=== PATIENT | male | born 1960 | race Caucasian/White ===

== ENCOUNTER 2018-08-29 08:51 | Outpatient (CLI) | payer OTHER, SELFPAY ==
[2018-08-29 10:29] LABS: Cholesterol 188 mg/dL (50-200); HDL Cholesterol 37 mg/dL (40-60); LDL CHOLESTEROL 135 mg/dL (<100); Triglyceride 99 mg/dL (30-150)
== END 2018-08-29 09:11 ==
PROVIDERS: PCP Family Medicine; Visit Provider Family Medicine
DX: E78.5 Hyperlipidemia, unspecified (principal)
CPT/HCPCS: 36415; 80061; 83721

== ENCOUNTER 2018-10-09 07:33 | Outpatient (REF) | payer OTHER, SELFPAY ==
[2018-10-10 11:37] LABS: Campylobacter PCR SEE COMMENTS; Salmonella PCR SEE COMMENTS; Shiga Toxin PCR SEE COMMENTS; Shigella/Enteroinvasive Ecoli SEE COMMENTS
== END 2018-10-09 07:53 ==
LOC: LBN 07:33
PROVIDERS: PCP Family Medicine; Visit Provider Family Medicine
DX: R19.7 Diarrhea, unspecified (principal)
CPT/HCPCS: 87329; 87505; 87177

== ENCOUNTER 2019-09-02 09:54 | Outpatient (REF) | payer OTHER, SELFPAY ==
[2019-09-02 12:55] LABS: Uric Acid 8.2 mg/dL (3.5-7.2)
== END 2019-09-02 10:14 ==
LOC: LBN 09:54
PROVIDERS: PCP Family Medicine; Visit Provider Family Medicine
DX: M10.9 Gout, unspecified (principal)
CPT/HCPCS: 84550

== ENCOUNTER 2020-02-27 02:04 | Outpatient (CLI) | payer OTHER, SELFPAY ==
[2020-02-27 09:43] LABS: Anion Gap 8.1 mmol/L (3-11); BUN 26 mg/dL (7-18); CO2 25.9 mmol/L (21.0-32.0); Chloride 103 mmol/L (98-107); Glucose 110 mg/dL (74-106); Potassium 4.4 mmol/L (3.5-5.1); Sodium 137 mmol/L (136-145)
== END 2020-02-27 02:24 ==
PROVIDERS: PCP Family Medicine; Visit Provider Family Medicine
DX: E11.9 Type 2 diabetes mellitus without complications (principal)
CPT/HCPCS: 36415; 80048

== ENCOUNTER 2020-03-22 11:44 | Outpatient (CLI) | payer OTHER, SELFPAY ==
[2020-03-23 02:51] LABS: COVID-19 RT-PCR UVMMC Result Negative (Negative)
== END 2020-03-22 12:04 ==
PROVIDERS: PCP Family Medicine; Visit Provider Family Medicine
DX: Z20.828 Contact with and (suspected) exposure to other viral communicable diseases (principal)
CPT/HCPCS: U0003

== ENCOUNTER 2023-02-19 06:54 | Day surgery (SDC) | payer OTHER, SELFPAY ==
[2023-02-19 07:00] VITALS: BP 137/86; PULSE 72; RESP 18; TEMP 36.3; O2SAT 97
[2023-02-19] MEDS: Lactated Ringers 1,000 ML 80 ML IV (07:25)
--- NOTE | 2023-02-19 07:34 | W.ANESPOSTOP ---
Postoperative Evaluation Date, Time and Location Date Performed: 02/19/23 Time Performed: 06:55 Patient Location: Day Surgery Unit Vital Signs Most Recent Imported Vital Signs: Most Recent Vital Signs Temp Pulse Resp BP Pulse Ox 36.3 C L 72 18 137/86 97 02/19/23 07:00 02/19/23 07:00 02/19/23 07:00 02/19/23 07:00 02/19/23 07:00 Assessment Mental Status: Awake (Alert & Oriented to Patient Baseline) Airway and Respiratory Function: Patent airway with normal (patient baseline) respiratory exam Cardiovascular Function: Hemodynamically Stable Hydration Status: Adequately Hydrated Nausea & Vomiting: No Nausea or Vomiting Pain: Pt. Denies Any Pain Peripheral Nerve Block: Patient did not receive a nerve block
--- NOTE | 2023-02-19 07:34 | W.ANESPRE ---
General Info Date of Service Date Performed: 02/19/23 Height: 5 ft 7 in Weight: 96.3 kg Body Mass Index (BMI): 33.2 Surgical Procedure: Operation Date: 02/19/23 08:20 Proposed Procedure Side Surgeon p Colonoscopy Bruce Watters MD Meds Allergies and Home Medications Allergies Allergy/AdvReac Type Severity Reaction Status Date / Time gluten Allergy Unknown unknown Verified 02/19/23 07:09 Home Medication Medication Instructions Recorded aspirin 81 mg tablet,delayed 81 mg PO DAILY 100 days #100 tabs 02/26/18 release (Aspir-) blood-glucose meter (OneTouch ##1 02/26/18 Verio IQ Meter) lancets 33 gauge (OneTouch Delica #100 ea 02/26/18 Lancets) indomethacin 50 mg capsule 50 mg PO TID PRN gout attack #30 08/31/20 caps blood sugar diagnostic (OneTouch #100 strips 11/24/21 Verio test strips) escitalopram oxalate 20 mg tablet 20 mg PO DAILY #90 tabs 06/19/22 (Lexapro) allopurinol 100 mg tablet 100 mg PO DAILY #90 tabs 11/02/22 atorvastatin 40 mg tablet 40 mg PO DAILY #90 tabs 11/02/22 metformin 500 mg tablet 1,000 mg PO BID #360 tabs 11/24/22 bisacodyl 5 mg tablet,delayed 5 mg PO ONCE colonscopy bowel prep 02/01/23 release (Dulcolax (bisacodyl)) #4 tabs polyethylene glycol 3350 17 238 g PO ONCE colonoscopy prep 02/01/23 gram/dose oral powder #238 grams Current Visit Medications: Current Medications Generic Name Dose Route Start Last Admin Trade Name Freq PRN Reason Stop Dose Admin Ringer's Solution 1,000 mls @ 80 mls/hr 02/19/23 06:00 02/19/23 07:25 IV 03/18/23 23:59 80 mls/hr INFUSION GO Administration IV Miscellaneous Supplies 1 each 02/19/23 06:00 Iv Access IV 03/18/23 23:59 DIRECTED GO Sodium Chloride 0 ml 02/19/23 06:00 Normal Saline Flush 10 Ml Syr IV 03/18/23 23:59 PRN PRN Sodium Chloride 0 ml 02/19/23 06:00 Normal Saline 10 Ml Vial IJ 03/18/23 23:59 DIRECTED PRN Sterile Water 0 ml 02/19/23 06:00 Water,Injection,Sterile 10 Ml Vial IJ 03/18/23 23:59 DIRECTED PRN PFSH Active Problems Active Problems: Problem Status Onset Code De Quervain's tenosynovitis, right M65.4 Diabetic retinopathy of left eye ~09/26/22 E11.319 Hyperlipidemia E78.5 Diabetes mellitus E11.9 Tubular adenoma of colon 02/04/18 D12.6 Celiac disease 04/17/03 K90.0 Medical History Medical History Anxiety disorder Cardiac murmur Celiac disease Gout Surgical History Surgical History Colonoscopy - MAC (02/04/18) Tobacco Smoking/Tobacco Use Status: Never Alcohol Alcohol Intake: current Alcohol intake frequency: holidays/special occasions only Substance Use Substance use: Never Substance use type: does not use Vital Signs and Lab Results Vital Signs Most Recent Vital Signs in EMR: Most Recent Vital Signs Temp Pulse Resp BP Pulse Ox 36.3 C L 72 18 137/86 97 02/19/23 07:00 02/19/23 07:00 02/19/23 07:00 02/19/23 07:00 02/19/23 07:00 Point of Care Results Point of Care Results: Finger Stick Blood Glucose 129 02/19/23 07:09 Lab Results Blood Type / Crossmatch: No Data to Display Complete Blood Count: No Data to Display Complete Metabolic Panel: No Data to Display Liver Function Panel: No Data to Display Coagulation Panel: No Data to Display Cardiac Panel: No Data to Display Arterial Blood Gas: No Data to Display Venous Blood Gas: No Data to Display Pancreas Panel: No Data to Display Thyroid Panel: No Data to Display Infectious Disease: No Data to Display Blood Cultures: No Data to Display Toxicology Panel: No Data to Display Anesthesia Assessment and Plan Anesthesia History Personal History: No History of Anesthesia Complications Family History: No Family History of Anesthesia Complications Exercise Tolerance Exercise Tolerance: Metabolic Equivalents>4 Pertinent Negatives Pertinent Negatives: No Symptoms of GERD Cardiac & Pulmonary Exam Cardiac Exam: Normal S1/S2 Heart Sounds Pulmonary Exam: Clear Bilateral Breath Sounds Implantable Cardiac Device Does patient have a Pacemaker or an ICD?: No Airway Exam Known Difficult Airway: No Mallampati Class: 2 Mouth Opening: Normal (> 3cm) Thyromental Distance: Greater than 3 cm Neck Range of Motion: Full ROM Neck Circumference: Normal Teeth Condition: Normal Dentition ASA Classification ASA Score: ASA 2 Emergency Case?: No NPO Status NPO Status: NPO Clears >2 hours, Solids >8 hours Anesthesia Plan Resuscitation Status: Full Code Anesthesia Technique: MAC Anesthesia Airway Planned: Natural Airway Monitors Used: Standard Monitors
[2023-02-19 07:35] VITALS: BMI 33.2
--- NOTE | 2023-02-19 08:07 | W.COLOREPORT ---
Date of service: 02/19/23 Time of Service: 08:30 Colonoscopy Report Procedure Description: Procedures performed: 1. Colonoscopy Preoperative diagnosis: Colon polyps, surveillance colonoscopy Postoperative diagnosis: Normal colon, normal rectum Surgeon: Joana Watters Anesthesia: Rangel Indication for procedure: 62-year-old man who has had prior colonoscopies and each time has had adenomatous polyps removed. He is due for surveillance. He is not having any symptoms. He does not have a family history of colon cancer. Findings: Normal Colon.? Normal Rectum. Surveillance/follow-up recommendations: 5-7 years because of the polyp history on prior scopes x2. Complications: None Blood loss: Minimal Prep: Excellent Specimens:? None Procedure in detail: Written consent was obtained from the patient who was in agreement with the risks, benefits and indications of the procedure.? We went to the endoscopy suite and laid the patient in left lateral decubitus position.? Anesthesia was administered which was tolerated well.? A timeout was performed and when we are all in agreement we began the procedure. Digital rectal exam and visual examination was performed and within normal limits.? A well?lubricated colonoscope was advanced without difficulty all the way to the cecum identified by the ileocecal valve, and triangular folds and appendiceal orifice.? It was then slowly withdrawn.?? Retroflexion was performed in the rectum.? The findings/interventions are noted above. The scope was then removed and the patient tolerated the procedure well and was then taken back to the PACU in hemodynamically stable condition.
[2023-02-19 08:34] VITALS: BP 111/86; PULSE 76; RESP 16; TEMP 36.5; O2SAT 96
--- NOTE | 2023-02-19 08:35 | W.ANESPOSTOP ---
Postoperative Evaluation Date, Time and Location Date Performed: 02/19/23 Time Performed: 08:35 Patient Location: Day Surgery Unit Vital Signs Most Recent Imported Vital Signs: Most Recent Vital Signs Temp Pulse Resp BP Pulse Ox 36.3 C L 72 18 137/86 97 02/19/23 07:00 02/19/23 07:00 02/19/23 07:00 02/19/23 07:00 02/19/23 07:00 Most Recent Vital Signs Temp Pulse Resp BP Pulse Ox 36.3 C L 72 18 137/86 97 02/19/23 07:00 02/19/23 07:00 02/19/23 07:00 02/19/23 07:00 02/19/23 07:00 Assessment Mental Status: Awake (Alert & Oriented to Patient Baseline) Airway and Respiratory Function: Patent airway with normal (patient baseline) respiratory exam Cardiovascular Function: Hemodynamically Stable Hydration Status: Adequately Hydrated Nausea & Vomiting: No Nausea or Vomiting Pain: Pt. Denies Any Pain Peripheral Nerve Block: Patient did not receive a nerve block
[2023-02-19 09:10] VITALS: BP 126/88; PULSE 70; RESP 16; TEMP 36.7; O2SAT 98
== END 2023-02-19 09:15 | disposition home or self-care (01) ==
PROVIDERS: PCP Family Medicine; Visit Provider Student in an Organized Health Care Education/Training Program
PROC: 0DJD8ZZ Inspection of Lower Intestinal Tract, Via Natural or Artificial Opening Endoscopic (ICD-10-PCS; CPT 45378; principal; 2023-02-19 08:15)
DX: Z12.11 Encounter for screening for malignant neoplasm of colon (principal); Z86.010 Personal history of colon polyps
CPT/HCPCS: 45378

== ENCOUNTER 2024-04-11 14:53 | Outpatient (CLI) | payer OTHER, SELFPAY ==
[2024-04-11 12:52] LABS: ALT 40 U/L (16-63); AST 23 U/L (15-37); Albumin 3.9 g/dL (3.4-5.0); Alkaline Phosphatase 76 U/L (46-116); Bilirubin, Direct 0.1 mg/dL (0.0-0.2); Bilirubin, Total 0.45 mg/dL (0.2-1.0)
--- OUTSIDE RECORDS SUMMARY | 2024-04-11 14:56 | XMS_ITS | Referral Summary ---
Author Organization [facility] Address [address] [place] [address] Care Team Providers Care Server Name Role Phone Unknown, Provider Primary Care Provider [phone] Social History Tobacco Use Types Packs/Day Years Used Date Smoking Tobacco: Never Assessed Interpersonal Safety Answer Date Record ed Physically Hurt Never 05/03/2020 Verbally Threaten Not on file 05/03/2020 Sex and Gender Information Value Date Recorded Sex Assigned at Not on file Gender Identity Not on file Sexual Orientation Not on file Plan of Treatment Not on file Care Teams Server Relationship Specialty Start Date End Date Unknown, Provider, PCP - General 02/04/18
--- OUTSIDE RECORDS SUMMARY | 2024-04-11 14:56 | XMS_ITS | Encounter Summary ---
Author Organization [facility] Address [address] [place] [address] Care Team Providers Care Print Shop Assistant Name Role Phone Unknown, Provider Primary Care Provider [phone] Encounter Details Date Type Department Care Team (Late st Contact Info) Description 03/22/2020 Lab Requisition [facility] Pathology & Laboratory Medicine - [facility] [address] [place] [address] Outr Resulting Lab, Provider Social History Tobacco Use Types Packs/Day Years Used Date Smoking Tobacco: Never Assessed Sex and Gender Information Value Date Recorded Sex Assigned at Not on file Gender Identity Not on file Sexual Orientation Not on file documented as of this encounter Plan of Treatment Not on file documented as of this encounter Procedures Procedure Name Priority Date/Time Associated Diagnosis Comments ZZCOVID-19 TEST [facility] PCR Today 03/22/2020 13:37 EDT COVID-19 TESTING Routine 03/22/2020 13:3 7 EDT documented in this encounter Results * COVID-19 TEST [facility] PCR (03/22/2020 13:37 EDT) Swab ENTIRE NASOPHARYNX / Unknown 03/22/2020 13:37 EDT 03/22/2020 20:36 EDT Provider Outr Resulting Lab MICROBIOLOGY - GENERAL ORDERABLES [facility] [address] [place] [address] * COVID-19 TESTING (03/22/2020 13:37 EDT) COVID-19 rt-PCR Result Negative Negative 03/23/2020 2:47 EDT [facility] Comment: This test has not been FDA cleared or approved. This test has been authorized by FDA under an EUA for use by authorized laboratories. This test has been authorized only for detection of nucleic acid from 2019-nCoV, not for any other viruses or pathogens. This test is only authorized for the duration of the declaration that circumstances exist justifying the authorization of emergency use of in vitro diagnostic tests for detection and/or diagnosis of 2019-nCoV under section 564(b)(1) of Act, 21 U.S.C ?? 360bbb-3(b) (1), unless the authorization is terminated or revoked sooner. Negative results do not preclude 2019-nCoV infection and should not be used as the sole basis for treatment or other patient management decisions. Negative results must be combined with clinical observations, patient history, and epidemiological information. Performed on the Flareoher Fusion instrument Performing Lab [facility] Lab 03/23/2020 2:47 EDT [facility] Swab 03/22/2020 13:3 7 EDT 03/22/2020 20:36 EDT Provider Outr Resulting Lab MICROBIOLOGY - GENERAL ORDERABLES [facility] [address] [place] [address] documented in this encounter Visit Diagnoses Not on filedocumented in this encounter Care Teams Print Shop Assistant Relationship Specialty Start Date End Date Unknown, Provider, PCP - General 02/04/18 documented as of this encounter
--- OUTSIDE RECORDS SUMMARY | 2024-04-11 14:56 | XMS_ITS | Encounter Summary ---
Author Organization [facility] Address [address] [place] [address] Care Team Providers Care Mincemeat Maker Name Role Phone Unknown, Provider Primary Care Provider [phone] Encounter Details Date Type Department Care Team (Late st Contact Info) Description 02/04/2018 Results Only [facility] [phone] Lindsay Fragoso MD [address], [place] [id number] Social History Tobacco Use Types Packs/Day Years Used Date Smoking Tobacco: Never Assessed Sex and Gender Information Value Date Recorded Sex Assigned at Not on file Gender Identity Not on file Sexual Orientation Not on file documented as of this encounter Plan of Treatment Not on file documented as of this encounter Procedures Procedure Name Priority Date/Time Associated Diagnosis Comments SURGICAL PATHOLOGY Routine 02/04/2018 17 :18 EDT documented in this encounter Results * SURGICAL PATHOLOGY (02/04/2018 17:18 EDT) Pathology Report: SURGICAL PATHOLOGY REPORT Reports generated via electronic interface contain original data; however they are lacking the format of the original report. Caution should be taken when reading/interpret ing unformatted reports. Name: ? REED QUINTANILLA ? Accession #: ? [id number] ? : ? 1960 (Age: 57) ??M ? Collect Date: ? 02/04/2018 ? Location: ? [facility] ? Receive Date: ? 02/04/2018 ? Provider: LINDSAY FRAGOSO MD Copy to: AZUCENA VALDIVIA DO ? Final Pathologic Diagnosis: A. ??COLON, DESCENDING POLYP, POLYPECTOMY: - Diminutive tubular adenoma. B. ??RECTUM, POLYP, POLYPECTOMY: - Hyperplastic polyp. ?? Document reviewed and electronically signed by: WILLIAM MARTÍNEZ MD Report ??Date: 02/05/2018 17:08 By the signature above, the attending physician certifies that he/she has personally conducted a gross and/or microscopic examination of the described specimens and rendered or confirmed the above diagnosis. Specimen(s) Received: A. ??Descending colon polyp B. ??Rectal polyp Clinical History: Screening Gross Description: A. ?Received in formalin labelled with proper patient identification (initials I, S) and descending colon polyp are three yi-white tissues (0.1 x 0.1 x 0.1 cm to 0.9 x 0.2 x 0.1 cm). Submitted in toto in A1. B. ?Received in formalin labelled with proper patient identification (initials I, S) and rectal polyp is a yi-pink tissue (0.2 x 0.2 x 0.1 cm). Submitted in toto in B1. ANAMIKA Azar (ASCP) 02/04/2018 5:34 PM End of Report [facility] 02/04/2018 17:1 8 EDT 02/04/2018 17:18 EDT Lindsay Fragoso MD PATHOLOGY ORDERA NADEEN [facility] [address] [place] [address] documented in this encounter Visit Diagnoses Not on filedocumented in this encounter Care Teams Mincemeat Maker Relationship Specialty Start Date End Date Unknown, Provider, PCP - General 02/04/18 documented as of this encounter
--- OUTSIDE RECORDS SUMMARY | 2024-04-11 14:56 | XMS_ITS | Clinical Summary ---
Author Organization [facility] Address [address] [place] [address] Care Team Providers Care Layout Former Name Role Phone Unknown, Provider Primary Care Provider [phone] Social History Tobacco Use Types Packs/Day Years Used Date Smoking Tobacco: Never Assessed Interpersonal Safety Answer Date Record ed Physically Hurt Never 05/03/2020 Verbally Threaten Not on file 05/03/2020 Sex and Gender Information Value Date Recorded Sex Assigned at Not on file Gender Identity Not on file Sexual Orientation Not on file Plan of Treatment Health Maintenance Due Date Last Done Comments Hepatitis C Screen 1960 RSV Immunization ( o r 60+ Years) (1 - 1-dose 60+ series) 2019 COVID-19 Vaccine (2022-24 season) 2023 Care Teams Layout Former Relationship Specialty Start Date End Date Unknown, Provider, PCP - General 02/04/18
--- OUTSIDE RECORDS SUMMARY | 2024-04-11 14:56 | XMS_ITS | Encounter Summary ---
Author Organization [facility] Address [address] [place] [address] Care Team Providers Care Instrument Lens Generator Name Role Phone Unknown, Provider Primary Care Provider [phone] Encounter Details Date Type Department Care Team (Latest Contact Info) Description 02/04/2018 11:22 EDT - 02/04/2018 23:59 EDT Hospital Encounter [address] [address] Unknown, Provider, Discharge Disposition: Home or Self Care Social History Tobacco Use Types Packs/Day Years Used Date Smoking Tobacco: Never Assessed Sex and Gender Information Value Date Recorded Sex Assigned at Not on file Gender Identity Not on file Sexual Orientation Not on file documented as of this encounter Discharge Disposition Disposition Code Departure Means Destination Home or Self Longterm documented in this encounter Plan of Treatment Not on file documented as of this encounter Visit Diagnoses Not on filedocumented in this encounter Care Teams Instrument Lens Generator Relationship Specialty Start Date End Date Unknown, Provider, PCP - General 02/04/18 documented as of this encounter
== END 2024-04-11 14:54 | disposition home or self-care (01) ==
LOC: LBO 14:55
PROVIDERS: PCP Family Medicine; Visit Provider Family Medicine
DX: B35.1 Tinea unguium (principal)
CPT/HCPCS: 36415; 80076

== ENCOUNTER 2025-06-08 07:25 | Outpatient (CLI) | payer MEDICARE, OTHER, SELFPAY ==
[2025-06-08 08:30] LABS: Hemoglobin A1C 6.0 % (<5.7)
[2025-06-08 09:06] LABS: ALT 42 U/L (16-63); AST 26 U/L (15-37); Albumin 4.1 g/dL (3.4-5.0); Alkaline Phosphatase 77 U/L (46-116); Anion Gap 6.3 mmol/L (3-11); BUN 21 mg/dL (7-18); Bilirubin, Total 0.5 mg/dL (0.2-1.0); CO2 28.7 mmol/L (21.0-32.0); Calcium 9.4 mg/dL (8.5-10.1); Chloride 100 mmol/L (98-107); Estimated GFR 74.04 (mL/min/1.73m2); Glucose 131 mg/dL (74-106); Potassium 4.6 mmol/L (3.5-5.1); Sodium 135 mmol/L (136-145); Total Protein 7.2 g/dL (6.4-8.2)
[2025-06-08 09:21] LABS: Calculated LDL 86 mg/dL (<100); Cholesterol 156 mg/dL (<200); HDL Cholesterol 53 mg/dL (>or=40)
[2025-06-08 09:41] LABS: Triglyceride 89 mg/dL (<150)
== END 2025-06-08 07:26 | disposition home or self-care (01) ==
LOC: LBO 06-09 07:26
PROVIDERS: PCP Family Medicine; Visit Provider Family Medicine
DX: E11.9 Type 2 diabetes mellitus without complications (principal)
CPT/HCPCS: 36415; 80053; 80061; 83036